=== PATIENT | female | born 1970 | race Caucasian/White ===

== ENCOUNTER 2017-02-12 23:45 | Observation (INO) | payer OTHER ==
[2017-02-13] MEDS ORDERED: Nitrostat 0.4 MG (ED) SL ONE ×2 (00:22→00:27)
[2017-02-13] MEDS ORDERED: BABY ASPIRIN 81 MG CHEW PO ONE (00:22)
[2017-02-13] MEDS ORDERED: Ativan 2 MG/1 ML VIAL IV ONE (00:26)
[2017-02-13] MEDS ORDERED: BABY ASPIRIN 81 MG CHEW ONE (00:27)
[2017-02-13] MEDS ORDERED: Sodium Chloride 0.9% 1000 ML 1,000 ML IV SCH (00:30)
--- NOTE | 2017-02-13 00:38 | ERPHSYRPT ---
- History of Present Illness Time Seen by Provider: 02/13/17 00:15 Historian: patient Patient Subjective Stated Complaint: Pt sts aching in left chest since 1400 with feelings of palpitations and that her left arm has felt "weird". Sts has had increased stress at home with family. Sts discomfort started while doing home chores. Sts nausea. Denies shortness of breath. Denies diaphoresis. Also C /O headache in temples. Triage Nursing Assessment: Pt alert, oriented, answers all questions appropriately. skin p/w/d, resps non-labored. Ambulatory to tx room, steady gait noted. SR on monitor technician. SPO2 100% room air. Physician History: PATIENT A HISTORY FOR MIGRAINE HEADACHE, RCENTLY PLACED ONTO ADIPEX COMPLAINS OF SUBSTERNAL ACHING DISCOMFORT ASSOCIATED WITH LEFT ARM ACHING DISOMFORT AND PALPITATIONS. PAIN SCALE 5/7. DENIES DISPHORESIS, COUGH OR DYSPNEA. HAS ASSOCIATED MIGRIANE HEADACHES. Timing/Duration: yesterday (SINCE 3PM) Quality: aching Chest Pain Radiation: arm Severity of Pain-Max: moderate Severity of Pain-Current: moderate Modifying Factors: Improves With: nothing Associated Symptoms: nausea, hurts to breathe Aspirin Treatment Today: provided by ED Allergies/Adverse Reactions: No Known Drug Allergies Allergy (Verified 02/13/17 00:02) Home Medications: Clidinium/Chlordiazepoxide [Librax] 1 cap PO QID 12/20/14 [History] Montelukast Sodium [Singulair] 1 tab PO DAILY 12/20/14 [History] Topiramate 100 mg [Topamax 100 MG] 100 mg PO HS 12/20/14 [History] Loperamide HCl 2 mg [Imodium 2 mg] 1 tab PO Q8HPRN PRN 08/17/15 [History] Ondansetron [Zofran Odt] 1 tab SL Q8H PRN PRN 08/17/15 [History] Sumatriptan Succinate [Imitrex 50 mg] 2 tab PO PRN 08/17/15 [History] Topiramate 25 mg [Topamax 25 MG] 1 tab PO QAM 08/17/15 [History] Alprazolam [Xanax] 0.5 mg PO QID PRN PRN 02/13/17 [History] Loratadine 10 mg PO DAILY 02/13/17 [History] Phentermine HCl [Adipex-P] 37.5 mg PO DAILY 02/13/17 [History] Hx Tetanus, Diphtheria Vaccination/Date Given: No Immunizations Up to Date: Yes - Review of Systems Constitutional: No Fever, No Chills Eyes: No Symptoms Ears, Nose, & Throat: No Symptoms Cardiac: Chest Pain, Palpitations Genitourinary Symptoms: No Symptoms Musculoskeletal: No Symptoms Neurological: No Symptoms, Dizziness, Headache Psychological: No Symptoms Endocrine: No Symptoms - Past Medical History Pertinent Past Medical History: Yes Neurological History: Migraines ENT History: No Pertinent History Cardiac History: High Cholesterol, Hypertension Respiratory History: No Pertinent History Endocrine Medical History: Other Musculoskeletal History: No Pertinent History GI Medical History: Gallbladder Disease, Irritable Bowel History: No Pertinent History Psycho-Social History: Anxiety Female Reproductive Disorders: Menstrual Problems Other Medical History: hx of high cholesterol but not at present, hx of elevated liver enzymes with bx that was negative but nothing recently, has had hx of anxiety issues with meds but nothing at present, had parital hysterectomy due to hx of heavy periods, had gallbladder disease and had a cholecystectomy, has htn that she treats with meds - Past Surgical History Past Surgical History: Yes Neuro Surgical History: No Pertinent History Cardiac: No Pertinent History Respiratory: No Pertinent History Gastrointestinal: Cholecystectomy Genitourinary: No Pertinent History Musculoskeletal: No Pertinent History Female Surgical History: Hysterectomy Other Surgical History: tonsilectomy, sinus surgery, partial hysterectomy, cholecystectomy - Social History Smoking Status: Never smoker Exposure to second hand smoke: No Drug Use: none Patient Lives Alone: No - Female History Hx Last Menstrual Period: hyst - Nursing Vital Signs Nursing Vital Signs: Initial Vital Signs Temperature 98.4 F 02/12/17 23:56 Pulse Rate 83 02/12/17 23:56 Respiratory Rate 18 02/12/17 23:56 Blood Pressure 144/80 02/12/17 23:56 O2 Sat by Pulse Oximetry 100 02/12/17 23:56 Pain Scale Pain Intensity 3 - Physical Exam General Appearance: no apparent distress, alert Eye Exam: PERRL/EOMI, eyes nml inspection Ears, Nose, Throat Exam: normal ENT inspection, moist mucous membranes Neck Exam: normal inspection, non-tender, supple, full range of motion Respiratory Exam: normal breath sounds, chest tenderness (LEFT LATERAL CHEST WALL TENDERNESS), lungs clear, No respiratory distress Cardiovascular Exam: regular rate/rhythm, normal heart sounds Gastrointestinal/Abdomen Exam: soft, No tenderness, No mass Back Exam: normal inspection, No CVA tenderness, No vertebral tenderness Extremity Exam: normal inspection, normal range of motion Neurologic Exam: alert, oriented x 3, cooperative, normal mood/affect, sensation nml, No motor deficits Skin Exam: normal color, warm, dry SpO2 Interpretation: normal SpO2: 100 Oxygen Delivery: Room Air - Course EKG Interpreted by Me: RATE, Sinus Rhythm, Non-specific ST Changes - Radiology Exams Chest X-ray Interpretation: Interpreted by me, Negative Ordered Tests: Active Orders 24 hr Category Date Time Status Bedrest with BRP/BSC ROUTINE Activity 02/13/17 02:01 Active Admission/Status Order ROUTINE Care 02/13/17 02:01 Active Call Admit Doctor for Orders ROUTINE Care 02/13/17 02:01 Active Carpet Technician STAT Care 02/13/17 00:23 Active Code Status Order ROUTINE Care 02/13/17 02:01 Active EKG-ER Only STAT Care 02/13/17 00:22 Active IV Care Q6H Care 02/13/17 02:01 Active Implement Chest Pain Pathway ROUTINE Care 02/13/17 02:01 Active Oxygen-ED Only NASAL CANNULA 2 lpm Care 02/13/17 00:22 Active Nish Ortiz, Apply ROUTINE Care 02/13/17 02:01 Active Telemetry ROUTINE Care 02/13/17 02:01 Active Vital Signs Q4H Care 02/13/17 02:01 Completed Weight,Daily 0600 Care 02/13/17 02:01 Active Cardiac Diet Diet 02/13/17 Breakfast Active CHEST 1 VIEW (PORTABLE) Stat Exams 02/13/17 00:22 Taken CBC W DIFF Stat Lab 02/13/17 00:45 Completed CMP Stat Lab 02/13/17 00:45 Completed D-DIMER QUANTITATION Stat Lab 02/13/17 00:45 Completed LIPID PROFILE AM.LAB Lab 02/13/17 04:00 Ordered PROTIME WITH INR Stat Lab 02/13/17 00:45 Completed TROPONIN Q3H Lab 02/13/17 00:45 Completed TROPONIN Q3H Lab 02/13/17 03:40 Completed TROPONIN Q3H Lab 02/13/17 06:30 Ordered TROPONIN Q3H Lab 02/13/17 09:30 Ordered TROPONIN Q3H Lab 02/13/17 12:30 Ordered EKG Q8HX2,QAMX3,PRN RT 02/13/17 02:01 Active Pulse Oximetry .continuos RT 02/13/17 02:01 Active Transfer Order Routine Transfer 02/13/17 Ordered Medication Summary Generic Name Dose Route Start Last Admin Trade Name Freq PRN Reason Stop Dose Admin Acetaminophen 650 mg 02/13/17 02:01 Tylenol 325 Mg PO 03/15/17 02:00 Q4H PRN PRN PAIN AND/OR FEVER Aspirin 325 mg 02/13/17 10:00 Ecotrin 325 Mg PO 03/15/17 09:59 DAILY CHIN Sodium Chloride 1,000 mls @ 100 mls/hr 02/13/17 00:30 02/13/17 00:47 Sodium Chloride 0.9% 1000 Ml IV 03/15/17 00:29 100 mls/hr .Q10H CHIN Administration Sodium Chloride 500 mls @ 20 mls/hr 02/13/17 02:15 Sodium Chloride 0.9% 500 Ml IV 03/15/17 02:14 .Q24H CHIN Magnesium Hydroxide 30 - 60 ml 02/13/17 02:01 Milk Of Magnesia 30 Ml PO 03/15/17 02:00 QDP PRN CONSTIPATION Morphine Sulfate 2 mg 02/13/17 02:01 Morphine Sulfate 2 Mg Inj IV 02/18/17 02:00 .Q15MIN PRN PRN CHEST PAIN Nitroglycerin 0.4 mg 02/13/17 02:01 Nitrostat 0.4 Mg Tablet SL 03/15/17 02:00 .Q5MIN PRN CHEST PAIN Ondansetron HCl 4 mg 02/13/17 02:01 Zofran 4 Mg/2 Ml Vial IV 03/15/17 02:00 Q4H PRN PRN NAUSEA/VOMITING Senna/Docusate Sodium 2 udtab 02/13/17 02:01 Senokot-S Tablet PO 03/15/17 02:00 BID PRN PRN CONSTIPATION Topiramate 100 mg 02/13/17 22:00 Topamax 100 Mg PO 03/15/17 21:59 [facility] 25 mg 02/13/17 10:00 Topamax 25 Mg PO 03/15/17 09:59 QAM [facility] Discontinued Medications Generic Name Dose Route Start Last Admin Trade Name Pratik PRN Reason Stop Dose Admin Aspirin 324 mg 02/13/17 00:22 02/13/17 00:47 Baby Aspirin 81 Mg Chew PO 02/13/17 00:23 324 mg STAT ONE Administration Aspirin Confirm 02/13/17 00:27 Baby Aspirin 81 Mg Chew Administered 02/13/17 00:28 Dose 324 mg .ROUTE .STK-MED ONE Hydromorphone HCl 1 mg 02/13/17 01:39 02/13/17 01:44 Hydromorphone 1 Mg/Ml Ampule IV 02/13/17 01:40 1 mg STAT ONE Administration Hydromorphone HCl Confirm 02/13/17 01:42 Hydromorphone 1 Mg/Ml Ampule Administered 02/13/17 01:43 Dose 1 mg .ROUTE .STK-MED ONE Lorazepam 1 mg 02/13/17 00:26 02/13/17 00:54 Ativan 2 Mg/1 Ml Vial IV 02/13/17 00:27 1 mg STAT ONE Administration Lorazepam Confirm 02/13/17 00:51 Ativan 2 Mg/1 Ml Vial Administered 02/13/17 00:52 Dose 2 mg .ROUTE .STK-MED ONE Nitroglycerin 0.4 mg 02/13/17 00:22 02/13/17 00:47 Nitrostat 0.4 Mg (Ed) SL 02/13/17 00:23 0.4 mg STAT ONE Administration Nitroglycerin Confirm 02/13/17 00:27 Nitrostat 0.4 Mg (Ed) Administered 02/13/17 00:28 Dose 0.4 mg SL .STK-MED ONE Ondansetron HCl 4 mg 02/13/17 01:38 02/13/17 01:44 Zofran 4 Mg/2 Ml Vial IV 02/13/17 01:39 4 mg STAT ONE Administration Ondansetron HCl Confirm 02/13/17 01:42 Zofran 4 Mg/2 Ml Vial Administered 02/13/17 01:43 Dose 4 mg .ROUTE .STK-MED ONE Lab/Rad Data: Laboratory Result Diagrams 02/13/17 00:45 02/13/17 00:45 Laboratory Results 02/13/17 02/13/17 02/13/17 Range/Units 00:45 00:45 00:45 WBC (4.0-10.5) K/mm3 RBC (4.1-5.4) M/mm3 Hgb (12.0-16.0) gm/dl Hct (35-47) % MCV (78-100) fl MCH (26-32) pg MCHC (32-36) g/dl RDW (11.5-14.0) % Plt Count (150-450) K/mm3 MPV (6-9.5) fl Gran % (36.0-66.0) % Lymphocytes % (24.0-44.0) % Monocytes % (0.0-12.0) % Eosinophils % (0.00-5.0) % Basophils % (0.0-0.4) % Basophils # (0-0.4) INR 0.94 (0.8-3.0) D-Dimer 221 (0-500) ng/mL Sodium 142 (136-145) mEq/L Potassium 3.5 (3.5-5.1) mEq/L Chloride 107 (98-107) mEq/L Carbon Dioxide 21.6 (21-32) mEq/L Anion Gap 17.3 H (5-15) MEQ/L BUN 9 (9-20) mg/dL Creatinine 0.96 (0.55-1.30) mg/dl Estimated GFR > 60 ML/MIN Glucose 96 (70-110) MG/DL Calcium 9.0 (8.5-10.1) mg/dL Total Bilirubin 0.20 (0.2-1.0) mg/dL AST 12 L (15-37) U/L ALT 22 (12-78) U/L Alkaline Phosphatase 90 (46-116) U/L Troponin I < 0.017 (0.000-0.056) ng/ml Serum Total Protein 7.6 (6.4-8.2) gm/dL Albumin 4.0 (3.4-5.0) g/dL 02/13/17 Range/Units 00:45 WBC 8.7 (4.0-10.5) K/mm3 RBC 5.15 (4.1-5.4) M/mm3 Hgb 14.3 (12.0-16.0) gm/dl Hct 43.5 (35-47) % MCV 84.5 (78-100) fl MCH 27.8 (26-32) pg MCHC 32.9 (32-36) g/dl RDW 14.1 H (11.5-14.0) % Plt Count 381 (150-450) K/mm3 MPV 10.1 H (6-9.5) fl Gran % 58.2 (36.0-66.0) % Lymphocytes % 28.3 (24.0-44.0) % Monocytes % 10.0 (0.0-12.0) % Eosinophils % 3.2 (0.00-5.0) % Basophils % 0.3 (0.0-0.4) % Basophils # 0.03 (0-0.4) INR (0.8-3.0) D-Dimer (0-500) ng/mL Sodium (136-145) mEq/L Potassium (3.5-5.1) mEq/L Chloride (98-107) mEq/L Carbon Dioxide (21-32) mEq/L Anion Gap (5-15) MEQ/L BUN (9-20) mg/dL Creatinine (0.55-1.30) mg/dl Estimated GFR ML/MIN Glucose (70-110) MG/DL Calcium (8.5-10.1) mg/dL Total Bilirubin (0.2-1.0) mg/dL AST (15-37) U/L ALT (12-78) U/L Alkaline Phosphatase (46-116) U/L Troponin I (0.000-0.056) ng/ml Serum Total Protein (6.4-8.2) gm/dL Albumin (3.4-5.0) g/dL - Progress Progress: improved Progress Note: 02/13/17 01:57 PATIENT GIVEN 4 BABY ASPIRIN , NITRO 0.4MG SL, CHEST PAIN RESOLVED. DILAUDID 1MG IV FOR CEPHALGIA Discussed with Dr.: Cormier (DISCUSSED WITH DR CORMIER AT 0145 FOR ADMISSION) - Departure Time of Disposition: 02:00 Departure Disposition: Observation Clinical Impression: ACUTE CHEST PAIN Condition: Stable Critical Care Time: No
[2017-02-13] MEDS ORDERED: Ativan 2 MG/1 ML VIAL ONE (00:51)
[2017-02-13 01:11] LABS: INR 0.94 (0.8-3.0); PROTIME 10.6 SECONDS (9.95-12.35)
[2017-02-13 01:14] LABS: BASOPHIL % 0.3 % (0.0-0.4); Eosinophil % 3.2 % (0.00-5.0); Granulocytes % 58.2 % (36.0-66.0); Lymphocytes % 28.3 % (24.0-44.0); Mean Cell Volume 84.5 fl (78-100); Mean Corpuscular Hemoglobin 27.8 pg (26-32); Mean Platelet Volume 10.1 fl (6-9.5); Platelet Count 381 K/mm3 (150-450); Red Blood Count 5.15 M/mm3 (4.1-5.4); Red Cell Distribution Width 14.1 % (11.5-14.0); White Blood Count 8.7 K/mm3 (4.0-10.5)
[2017-02-13 01:20] LABS: ALKALINE PHOSPHATASE 90 U/L (46-116); ANION GAP 17.3 MEQ/L (5-15); BLOOD UREA NITROGEN 9 mg/dL (9-20); CHLORIDE 107 mEq/L (98-107); Carbon Dioxide 21.6 mEq/L (21-32); Glucose 96 MG/DL (70-110); Potassium 3.5 mEq/L (3.5-5.1); SGOT/AST 12 U/L (15-37); SGPT/ALT 22 U/L (12-78); SODIUM 142 mEq/L (136-145); Total Protein 7.6 gm/dL (6.4-8.2)
[2017-02-13] MEDS ORDERED: Zofran 4 MG/2 ML VIAL IV ONE (01:38)
[2017-02-13] MEDS ORDERED: Hydromorphone 1 mg/ml Ampule IV ONE (01:39)
[2017-02-13] MEDS ORDERED: Hydromorphone 1 mg/ml Ampule ONE (01:42)
[2017-02-13] MEDS ORDERED: Zofran 4 MG/2 ML VIAL ONE (01:42)
[2017-02-13] MEDS ORDERED: MILK OF MAGNESIA 30 ML PO PRN (02:01)
[2017-02-13] MEDS ORDERED: Senokot-S Tablet PO PRN (02:01)
[2017-02-13] MEDS ORDERED: Zofran 4 MG/2 ML VIAL IV PRN (02:01)
[2017-02-13] MEDS ORDERED: TYLENOL 325 MG PO PRN (02:01)
[2017-02-13] MEDS ORDERED: Nitrostat 0.4 MG Tablet SL PRN (02:01)
[2017-02-13] MEDS ORDERED: MORPHINE SULFATE 2 MG INJ IV PRN (02:01)
[2017-02-13] MEDS ORDERED: Sodium Chloride 0.9% 500 ML 500 ML IV SCH (02:15)
--- NOTE | 2017-02-13 08:15 | PCM.SSS ---
History of Present Illness - Chief Complaint Chief Complaint: CP R/O History of Present Illness: is a 46 year old female who presented to the ER complaining of chest pain that was a pressure sensation, began yesterday and had some associated nausea. No shortness of breath or diaphoresis. - Review of Systems Constitutional: No Fever, No Chills Respiratory: No Cough, No Short Of Breath Cardiac: Chest Pain, No Edema, No Syncope Abdominal/Gastrointestinal: No Abdominal Pain, No Nausea, No Vomiting, No Diarrhea Skin: No Rash All Other Systems: Reviewed and Negative Medications & Allergies Home Medications: Home Medication List Clidinium/Chlordiazepoxide [Librax] 1 cap PO QID 12/20/14 [History Confirmed 02/13/17] Montelukast Sodium [Singulair] 1 tab PO DAILY 12/20/14 [History Confirmed ] Loperamide HCl 2 mg [Imodium 2 mg] 1 tab PO Q8HPRN PRN 08/17/15 [History Confirmed 02/13/17] Ondansetron [Zofran Odt] 1 tab SL Q8H PRN PRN 08/17/15 [History Confirmed ] Acetaminophen 325 mg [Tylenol 325 mg] 650 mg PO Q4H PRN PRN tablet [Rx] Alprazolam [Xanax] 0.5 mg PO QID PRN PRN 02/13/17 [History Confirmed 02/13/17] Aspirin EC 325 mg [Ecotrin 325 MG] 325 mg PO DAILY tablet.ec 02/13/17 [Rx ] Loratadine 10 mg PO DAILY 02/13/17 [History Confirmed 02/13/17] Allergies/Adverse Reactions: Allergies Allergy/AdvReac Type Severity Reaction Status Date / Time No Known Drug Allergies Allergy Verified 02/13/17 00:02 - Past Medical History Past Medical History: Yes Neurological History: Migraines ENT History: No Pertinent History Cardiac History: High Cholesterol, Hypertension Respiratory History: No Pertinent History Endocrine Medical History: Other Musculoskelatal History: No Pertinent History GI Medical History: Gallbladder Disease, Irritable Bowel History: No Pertinent History Pyscho-Social History: Anxiety Reproductive Disorders: Menstrual Problems Comment: hx of high cholesterol but not at present, hx of elevated liver enzymes with bx that was negative but nothing recently, has had hx of anxiety issues with meds but nothing at present, had parital hysterectomy due to hx of heavy periods, had gallbladder disease and had a cholecystectomy, has htn that she treats with meds - Female History Hx Last Menstrual Period: hyst Are you now?: No - Past Surgical History Past Surgical History: Yes Neuro Surgical History: No Pertinent History Cardiac History: No Pertinent History Respiratory Surgery: No Pertinent History GI Surgical History: Cholecystectomy Genitourinary Surgical Hx: No Pertinent History Musculskeletal Surgical Hx: No Pertinent History Female Surgical History: Hysterectomy Other Surgical History: tonsilectomy, sinus surgery, partial hysterectomy, cholecystectomy - Social History Smoking Status: Never smoker Exposure to second hand smoke: No Alcohol: Occasionally Drug Use: none - Physical Exam Vital Signs: Vital Signs - 24 hr Temp Pulse Resp BP Pulse Ox 02/13/17 07:51 97.3 F 71 18 147/84 100 02/13/17 06:49 100 02/13/17 02:01 98.5 F 74 16 129/75 99 02/13/17 01:35 86 16 123/71 97 02/13/17 01:03 86 20 129/72 95 02/12/17 23:56 98.4 F 83 18 144/80 100 General Appearance: no apparent distress, alert Respiratory Exam: normal breath sounds, lungs clear, No respiratory distress Cardiovascular Exam: regular rate/rhythm, normal heart sounds, normal peripheral pulses Gastrointestinal/Abdomen Exam: soft, normal bowel sounds, No tenderness, No mass Extremity Exam: normal inspection, normal range of motion, pelvis stable Skin Exam: normal color, warm, dry, No rash Results - Labs Lab/Micro Results: Lab Results-Last 24 Hours 02/13/17 02/13/17 02/13/17 Range/Units 03:40 07:08 07:08 Troponin I < 0.017 < 0.017 (0.000-0.056) ng/ml Triglycerides 109 (30-200) mg/dL Cholesterol 196 (100-200) mg/dL LDL Cholesterol 117 H (5-99) mg/dL HDL Cholesterol 54 (35-60) mg/dL Heart Disease Risk Ratio 3.6 - Other Procedures and Tests Respiratory Therapy 02/13/17 02:01 EKG Q8HX2,QAMX3,PRN 08/21/17 08:22 EKG ONCE 02/13/17 08:30 EKG ONCE 02/14/17 05:00 EKG ONCE 02/14/17 06:00 EKG ONCE 02/15/17 05:00 EKG ONCE 02/15/17 06:00 EKG ONCE 02/16/17 05:00 EKG ONCE Assessment/Plan (1) Chest pain Current Visit: Yes Status: Acute Assessment & Plan: will r/o VT, likely anxiety related. advised to stop adipex Code(s): R07.9 - CHEST PAIN, UNSPECIFIED (2) Anxiety Current Visit: Yes Status: Acute Code(s): F41.9 - ANXIETY DISORDER, UNSPECIFIED Hospital Summary - Vitals & Intake/Output Vital Signs: Vital Signs Temperature 97.3 F 02/13/17 07:51 Pulse Rate 71 02/13/17 07:51 Respiratory Rate 18 02/13/17 07:51 Blood Pressure 147/84 02/13/17 07:51 O2 Sat by Pulse Oximetry 100 02/13/17 07:51 Intake & Output: Intake & Output 02/10/17 02/11/17 02/12/17 02/13/17 11:59 11:59 11:59 11:59 Intake Total 235 Output Total 600 Balance -365 Weight 80.739 kg - Lab Result Diagrams: 02/13/17 00:45 02/13/17 00:45 Lab Results-Last 24 Hrs: Lab Results-Last 24 Hours 02/13/17 02/13/17 02/13/17 Range/Units 03:40 07:08 07:08 Troponin I < 0.017 < 0.017 (0.000-0.056) ng/ml Triglycerides 109 (30-200) mg/dL Cholesterol 196 (100-200) mg/dL LDL Cholesterol 117 H (5-99) mg/dL HDL Cholesterol 54 (35-60) mg/dL Heart Disease Risk Ratio 3.6 - Procedures and Test Procedures and Tests throughout Hospitalization: Therapy Orders & Screens 02/13/17 02:01 EKG Q8HX2,QAMX3,PRN Comment: 02/13/17 08:22 EKG ONCE Comment: Diagnosis: CP R/O 02/13/17 08:30 EKG ONCE Comment: Diagnosis: CP R/O 02/14/17 05:00 EKG ONCE Comment: Diagnosis: CP R/O 02/14/17 06:00 EKG ONCE Comment: Diagnosis: CP R/O 02/15/17 05:00 EKG ONCE Comment: Diagnosis: CP R/O 02/15/17 06:00 EKG ONCE Comment: Diagnosis: CP R/O 02/16/17 05:00 EKG ONCE Comment: Diagnosis: CP R/O - Discharge Disposition: Home, Self-Care Condition: Stable Prescriptions: New Aspirin EC 325 mg [Ecotrin 325 MG] 325 mg PO DAILY tablet.ec Acetaminophen 325 mg [Tylenol 325 mg] 650 mg PO Q4H PRN PRN tablet PRN Reason: Pain And/Or Fever Continue Montelukast Sodium [Singulair] 1 tab PO DAILY Clidinium/Chlordiazepoxide [Librax] 1 cap PO QID Loperamide HCl 2 mg [Imodium 2 mg] 1 tab PO Q8HPRN PRN PRN Reason: Diarrhea Ondansetron [Zofran Odt] 1 tab SL Q8H PRN PRN PRN Reason: Nausea Alprazolam [Xanax] 0.5 mg PO QID PRN PRN PRN Reason: Anxiety Loratadine 10 mg PO DAILY Discontinued Topiramate 100 mg [Topamax 100 MG] 100 mg PO HS Topiramate 25 mg [Topamax 25 MG] 1 tab PO QAM Phentermine HCl [Adipex-P] 37.5 mg PO DAILY Follow up with: ROSE CORMIER MD [Primary Care Provider] -
--- NOTE | 2017-02-13 08:39 | XRAY ---
Indication: Chest pain and palpitations. Comparison: August 03, 2015. Portable chest again demonstrates normal heart, lungs, and bony thorax with incidental calcified granulomas.
[2017-02-13] MEDS ORDERED: xanAX 0.5 MG PO PRN (08:45)
[2017-02-13] MEDS ORDERED: IMODIUM 2 MG PO PRN (08:45)
[2017-02-13] MEDS ORDERED: MEDICATION INTERVENTION MC PRN (08:57)
[2017-02-13] MEDS: LIBRAX PO SCH ×2 (09:56→12:05)
[2017-02-13] MEDS ORDERED: Topamax 25 MG PO SCH (10:00)
[2017-02-13] MEDS ORDERED: Ecotrin 325 MG PO SCH (10:00)
[2017-02-13] MEDS ORDERED: LORATADINE 10 MG PO SCH (10:00)
[2017-02-13] MEDS ORDERED: CLARITIN 10 MG PO SCH (10:00)
[2017-02-13] MEDS ORDERED: Singulair 10 MG PO SCH (10:00)
[2017-02-13 13:09] VITALS: BP 108/62; PULSE 74; O2SAT 96
[2017-02-13] MEDS ORDERED: Topamax 100 MG PO SCH (22:00)
== END 2017-02-13 14:10 | disposition home or self-care (01) ==
LOC: ED 23:45 → MED SURG 02-13 02:16
PROVIDERS: ADMIT Family Medicine; ATTEND Family Medicine
DX: R07.9 Chest pain, unspecified (principal); F41.9 Anxiety disorder, unspecified
CPT/HCPCS: 36000; 36415; 71010; 80053; 80061; 83721; 84484; 85025; 85379; 85610; 93005; 93041; 93268; 94760; 96360; 96374; 96375; 99285; G0378; J1170; J2060; J2405; A9270-GY

== ENCOUNTER 2018-09-18 12:35 | Emergency (ER) | payer OTHER ==
--- NOTE | 2018-09-18 12:44 | ERPHSYRPT ---
- History of Present Illness Time Seen by Provider: 09/18/18 12:43 Historian: patient, family Exam Limitations: no limitations Physician History: 48 y/o white female presents with diarrhea since last pm. pt has h/o chronic sinusitis on intranasal cipro/steroids solution, migraine headaches, and irritable bowel syndrome. pt feels weak and dehydrated. pt denies abd pain, headache and vomiting. pt recently started a keto diet Timing/Duration: day(s) (1) Activities at Onset: none Quality: other (no pain) Abdominal Pain Onset Location: other (none) Pain Radiation: no radiation Severity of Pain-Max: none Severity of Pain-Current: none Modifying Factors: Improves With: other (eating solids causes diarrhea) Associated Symptoms: diarrhea, loss of appetite, weakness, No chest pain, No nausea, No shortness of breath, No vomiting Previous symptoms: no prior history Allergies/Adverse Reactions: No Known Drug Allergies Allergy (Verified 09/18/18 13:02) Home Medications: Clidinium/Chlordiazepoxide [Librax] 1 cap PO QID 12/20/14 [History] Montelukast Sodium [Singulair] 1 tab PO DAILY 12/20/14 [History] Loperamide HCl 2 mg [Imodium 2 mg] 1 tab PO Q8HPRN PRN 08/17/15 [History] Ondansetron [Zofran Odt] 1 tab SL Q8H PRN PRN 08/17/15 [History] Alprazolam [Xanax] 0.5 mg PO QID PRN PRN 02/13/17 [History] Loratadine 10 mg PO DAILY 02/13/17 [History] Hx Tetanus, Diphtheria Vaccination/Date Given: No - Review of Systems Constitutional: Weakness Eyes: No Symptoms Ears, Nose, & Throat: No Symptoms Respiratory: No Symptoms Cardiac: No Symptoms Abdominal/Gastrointestinal: Diarrhea, No Abdominal Pain, No Nausea, No Vomiting Genitourinary Symptoms: No Symptoms Musculoskeletal: No Symptoms Skin: No Symptoms Neurological: No Symptoms Psychological: No Symptoms Endocrine: No Symptoms Hematologic/Lymphatic: No Symptoms Immunological/Allergic: No Symptoms All Other Systems: Reviewed and Negative - Past Medical History Pertinent Past Medical History: Yes Neurological History: Migraines ENT History: No Pertinent History Cardiac History: High Cholesterol, Hypertension Respiratory History: No Pertinent History Endocrine Medical History: Other Musculoskeletal History: No Pertinent History GI Medical History: Gallbladder Disease, Irritable Bowel History: No Pertinent History Psycho-Social History: Anxiety Female Reproductive Disorders: Menstrual Problems Other Medical History: hx of high cholesterol but not at present, hx of elevated liver enzymes with bx that was negative but nothing recently, has had hx of anxiety issues with meds but nothing at present, had parital hysterectomy due to hx of heavy periods, had gallbladder disease and had a cholecystectomy, has htn that she treats with meds - Past Surgical History Past Surgical History: Yes Neuro Surgical History: No Pertinent History Cardiac: No Pertinent History Respiratory: No Pertinent History Gastrointestinal: Cholecystectomy Genitourinary: No Pertinent History Musculoskeletal: No Pertinent History Female Surgical History: Hysterectomy Other Surgical History: tonsilectomy, sinus surgery, partial hysterectomy, cholecystectomy - Social History Smoking Status: Never smoker Exposure to second hand smoke: No Drug Use: none Patient Lives Alone: No - Nursing Vital Signs Nursing Vital Signs: Initial Vital Signs Temperature 97.8 F 09/18/18 12:55 Pulse Rate 99 H 09/18/18 12:55 Respiratory Rate 18 09/18/18 12:55 Blood Pressure 144/94 09/18/18 12:55 O2 Sat by Pulse Oximetry 97 09/18/18 12:55 Pain Scale Pain Intensity 0 - Physical Exam General Appearance: mild distress, alert, anxiety Eye Exam: PERRL/EOMI, eyes nml inspection Ears, Nose, Throat Exam: dry mucous membranes Neck Exam: normal inspection, non-tender, supple, full range of motion Respiratory Exam: normal breath sounds, lungs clear, airway intact, No chest tenderness, No respiratory distress Cardiovascular Exam: regular rate/rhythm, normal heart sounds, normal peripheral pulses Gastrointestinal/Abdomen Exam: soft, normal bowel sounds, No tenderness Pelvic Exam: not done Rectal Exam: not done Back Exam: normal inspection, normal range of motion, No CVA tenderness, No vertebral tenderness Extremity Exam: normal inspection, normal range of motion, pelvis stable Neurologic Exam: alert, oriented x 3, cooperative, spanish medical interpreter II-XII nml as tested, normal mood/affect, nml cerebellar function, nml station & gait Skin Exam: normal color, warm, dry Lymphatic Exam: No adenopathy SpO2 Interpretation: normal O2 Delivery: Room Air Ordered Tests: Active Orders 24 hr Category Date Time Status Clean Catch Urine Specimen STAT Care 09/18/18 13:10 Active IV Insertion STAT Care 09/18/18 13:10 Active ABDOMEN AND PELVIS W/0 CONTRAS [CT] Stat Exams 09/18/18 13:11 Completed AMYLASE Stat Lab 09/18/18 13:43 Completed CBC W DIFF Stat Lab 09/18/18 13:43 Completed CMP Stat Lab 09/18/18 13:43 Completed LIPASE Stat Lab 09/18/18 13:43 Completed Lactic Acid Stat Lab 09/18/18 13:40 Completed UA W/RFX UR CULTURE Stat Lab 09/18/18 13:10 Completed Medication Summary Generic Name Dose Route Start Last Admin Trade Name Freq PRN Reason Stop Dose Admin Sodium Chloride 1,000 mls @ 999 mls/hr 09/18/18 15:19 09/18/18 15:31 Sodium Chloride 0.9% 1000 Ml IV 09/18/18 16:19 999 mls/hr .Q1H1M STA Administration Discontinued Medications Generic Name Dose Route Start Last Admin Trade Name Freq PRN Reason Stop Dose Admin Sodium Chloride 1,000 mls @ 999 mls/hr 09/18/18 13:10 09/18/18 15:00 Sodium Chloride 0.9% 1000 Ml IV 09/18/18 14:10 Infused .Q1H1M STA Infusion Sodium Chloride Confirm 09/18/18 13:54 Sodium Chloride 0.9% 1000 Ml Administered 09/18/18 13:55 Dose 1,000 mls @ ud .ROUTE .STK-MED ONE Sodium Chloride Confirm 09/18/18 15:25 Sodium Chloride 0.9% 1000 Ml Administered 09/18/18 15:26 Dose 1,000 mls @ ud .ROUTE .STK-MED ONE Lab/Rad Data: Laboratory Result Diagrams 09/18/18 13:43 09/18/18 13:43 Laboratory Results 09/18/18 09/18/18 09/18/18 Range/Units 14:10 13:43 13:43 WBC 8.4 (4.0-10.5) K/mm3 RBC 5.18 (4.1-5.4) M/mm3 Hgb 14.1 (12.0-16.0) gm/dl Hct 43.3 (35-47) % MCV 83.6 (78-100) fl MCH 27.2 (26-32) pg MCHC 32.6 (32-36) g/dl RDW 14.5 H (11.5-14.0) % Plt Count 341 (150-450) K/mm3 MPV 10.0 H (6-9.5) fl Gran % 74.8 H (36.0-66.0) % Eos # (Auto) 0.12 (0-0.5) Absolute Lymphs (auto) 1.25 (1.0-4.6) Absolute Monos (auto) 0.70 (0.0-1.3) Lymphocytes % 14.9 L (24.0-44.0) % Monocytes % 8.4 (0.0-12.0) % Eosinophils % 1.4 (0.00-5.0) % Basophils % 0.5 (0.0-0.4) % Absolute Granulocytes 6.26 (1.4-6.9) Basophils # 0.04 (0-0.4) Sodium 138 (137-145) mmol/L Potassium 3.4 L (3.5-5.1) mmol/L Chloride 104 (98-107) mmol/L Carbon Dioxide 22 (22-30) mmol/L Anion Gap 16.0 H (5-15) MEQ/L BUN 14 (7-17) mg/dL Creatinine 1.01 (0.52-1.04) mg/dL Estimated GFR > 60.0 ML/MIN Glucose 80 (74-106) mg/dL Lactic Acid (0.4-2.0) Calcium 9.7 (8.4-10.2) mg/dL Total Bilirubin 0.30 (0.2-1.3) mg/dL AST 26 (14-36) U/L ALT 28 (0-35) U/L Alkaline Phosphatase 89 (38-126) U/L Serum Total Protein 7.7 (6.3-8.2) g/dL Albumin 4.6 (3.5-5.0) g/dL Amylase 90 (30-110) U/L Lipase 79 (23-300) U/L Urine Color (YELLOW) Urine Appearance (CLEAR) Urine pH (5-6) Ur Specific [place] (1.005-1.025) Urine Protein (Negative) Urine Ketones (NEGATIVE) Urine Blood (0-5) Josué/ul Urine Nitrite (NEGATIVE) Urine Bilirubin (NEGATIVE) Urine Urobilinogen (0-1) mg/dL Ur Leukocyte Esterase (NEGATIVE) Urine WBC (Auto) (0-5) /HPF Urine RBC (Auto) (0-2) /HPF U Epithel Cells (Auto) (FEW) /HPF Urine Bacteria (Auto) (NEGATIVE) /HPF Urine Mucus (Auto) (NEGATIVE) /HPF Urine Culture Reflexed (NO) Urine Glucose (NEGATIVE) mg/dL Influenza Type A Ag NEGATIVE (NEGATIVE) Influenza Type B Ag NEGATIVE (NEGATIVE) RSV (PCR) NEGATIVE (Negative) 09/18/18 09/18/18 Range/Units 13:40 13:10 WBC (4.0-10.5) K/mm3 RBC (4.1-5.4) M/mm3 Hgb (12.0-16.0) gm/dl Hct (35-47) % MCV (78-100) fl MCH (26-32) pg MCHC (32-36) g/dl RDW (11.5-14.0) % Plt Count (150-450) K/mm3 MPV (6-9.5) fl Gran % (36.0-66.0) % Eos # (Auto) (0-0.5) Absolute Lymphs (auto) (1.0-4.6) Absolute Monos (auto) (0.0-1.3) Lymphocytes % (24.0-44.0) % Monocytes % (0.0-12.0) % Eosinophils % (0.00-5.0) % Basophils % (0.0-0.4) % Absolute Granulocytes (1.4-6.9) Basophils # (0-0.4) Sodium (137-145) mmol/L Potassium (3.5-5.1) mmol/L Chloride (98-107) mmol/L Carbon Dioxide (22-30) mmol/L Anion Gap (5-15) MEQ/L BUN (7-17) mg/dL Creatinine (0.52-1.04) mg/dL Estimated GFR ML/MIN Glucose (74-106) mg/dL Lactic Acid 1.1 (0.4-2.0) Calcium (8.4-10.2) mg/dL Total Bilirubin (0.2-1.3) mg/dL AST (14-36) U/L ALT (0-35) U/L Alkaline Phosphatase (38-126) U/L Serum Total Protein (6.3-8.2) g/dL Albumin (3.5-5.0) g/dL Amylase (30-110) U/L Lipase (23-300) U/L Urine Color YELLOW (YELLOW) Urine Appearance SLIGHTLY CLOUDY (CLEAR) Urine pH 6.0 (5-6) Ur Specific [place] 1.014 (1.005-1.025) Urine Protein NEGATIVE (Negative) Urine Ketones MODERATE (NEGATIVE) Urine Blood SMALL (0-5) Josué/ul Urine Nitrite NEGATIVE (NEGATIVE) Urine Bilirubin NEGATIVE (NEGATIVE) Urine Urobilinogen NEGATIVE (0-1) mg/dL Ur Leukocyte Esterase NEGATIVE (NEGATIVE) Urine WBC (Auto) 0-2 (0-5) /HPF Urine RBC (Auto) 0-2 (0-2) /HPF U Epithel Cells (Auto) RARE (FEW) /HPF Urine Bacteria (Auto) RARE (NEGATIVE) /HPF Urine Mucus (Auto) SLIGHT (NEGATIVE) /HPF Urine Culture Reflexed NO (NO) Urine Glucose NEGATIVE (NEGATIVE) mg/dL Influenza Type A Ag (NEGATIVE) Influenza Type B Ag (NEGATIVE) RSV (PCR) (Negative) - Progress Progress: improved, re-examined Counseled pt/family regarding: lab results, diagnosis, need for follow-up, rad results - Departure Time of Disposition: 16:05 Departure Disposition: Home Clinical Impression: Diarrhea, Dehydration Condition: Stable Critical Care Time: No Referrals: ROSE CORMIER MD [Primary Care Provider] - Additional Instructions: drink plenty of fluids. avoid fatty, greasy spicy foods. follow up with your primary doctor for further management
[2018-09-18] MEDS ORDERED: Sodium Chloride 0.9% 1000 ML 1,000 ML IV STA ×2 (13:10→15:19)
--- NOTE | 2018-09-18 13:47 | XRAY ---
Indication: Diarrhea. Multiple contiguous axial images obtained through the abdomen and pelvis without contrast as ordered. Comparison: July 18, 2015. Lung bases are clear. Heart is not enlarged. Noncontrasted stomach and bowel loops appear nonobstructed. Normal appendix. Minimal scattered colonic diverticulosis without diverticulitis. Again cholecystectomy and partial hysterectomy. New 2.8 cm left ovary cyst. No free fluid/air. Spleen remains borderline enlarged measuring 12.8 cm in greatest axial dimension. Remaining liver, pancreas, spleen, adrenal glands, kidneys, ureters, bladder, and aorta appear unremarkable for noncontrast exam. Osseous structures intact. No ventral or inguinal hernias. Impression: 1. Minimal colonic diverticulosis and splenomegaly. 2. 2.8 cm left ovary cyst. 3. Remaining CT abdomen/pelvis without contrast exam is negative. CT DI 21.69
[2018-09-18] MEDS ORDERED: Sodium Chloride 0.9% 1000 ML 1,000 ML ONE ×2 (13:54→15:25)
[2018-09-18 13:57] LABS: BASOPHIL % 0.5 % (0.0-0.4); Basophil (Absolute #) 0.04 (0-0.4); Eosinophil % 1.4 % (0.00-5.0); Eosinophil (Absolute #) 0.12 (0-0.5); Granulocyte Absolute (ANC) 6.26 (1.4-6.9); Granulocytes % 74.8 % (36.0-66.0); Hematocrit 43.3 % (35-47); Hemoglobin 14.1 gm/dl (12.0-16.0); Lymphocyte (Absolute #) 1.25 (1.0-4.6); Lymphocytes % 14.9 % (24.0-44.0); Mean Cell Volume 83.6 fl (78-100); Mean Corpuscular Hemoglobin 27.2 pg (26-32); Mean Corpuscular Hgb Concent. 32.6 g/dl (32-36); Monocytes % 8.4 % (0.0-12.0); Platelet Count 341 K/mm3 (150-450); Red Blood Count 5.18 M/mm3 (4.1-5.4); Red Cell Distribution Width 14.5 % (11.5-14.0); White Blood Count 8.4 K/mm3 (4.0-10.5)
[2018-09-18 13:59] LABS: ALBUMIN 4.6 g/dL (3.5-5.0); ALKALINE PHOSPHATASE 89 U/L (38-126); AMYLASE 90 U/L (30-110); BLOOD UREA NITROGEN 14 mg/dL (7-17); CHLORIDE 104 mmol/L (98-107); Calcium 9.7 mg/dL (8.4-10.2); Carbon Dioxide 22 mmol/L (22-30); Creatinine 1 1.01 mg/dL (0.52-1.04); Glucose 80 mg/dL (74-106); LIPASE 79 U/L (23-300); Potassium 3.4 mmol/L (3.5-5.1); SGOT/AST 26 U/L (14-36); SGPT/ALT 28 U/L (0-35); SODIUM 138 mmol/L (137-145); Total Protein 7.7 g/dL (6.3-8.2)
[2018-09-18 14:33] LABS: Appearance SLIGHTLY CLOUDY (CLEAR); Bacteria RARE /HPF (NEGATIVE); Bilirubin NEGATIVE (NEGATIVE); Blood SMALL Ery/ul (0-5); Epithelial Cells RARE /HPF (FEW); Glucose NEGATIVE (NEGATIVE); Ketones MODERATE (NEGATIVE); Leukocyte Esterase NEGATIVE (NEGATIVE); Mucus SLIGHT /HPF (NEGATIVE); Nitrite NEGATIVE (NEGATIVE); Protein,Urine Dip NEGATIVE (Negative); RBC 0-2 /HPF (0-2); Specific Gravity 1.014 (1.005-1.025); Urobilinogen NEGATIVE mg/dL (0-1); WBC 0-2 /HPF (0-5)
[2018-09-18 14:34] LABS: INFLUENZA A NEGATIVE (NEGATIVE); INFLUENZA B NEGATIVE (NEGATIVE); RESPIRATORY SYNCTIAL VIRUS NEGATIVE (Negative)
[2018-09-18 15:52] VITALS: BP 148/78; PULSE 87; O2SAT 100
== END 2018-09-18 16:32 | disposition home or self-care (01) ==
LOC: ED 12:35
DX: R19.7 Diarrhea, unspecified (principal); E86.0 Dehydration; E78.00 Pure hypercholesterolemia, unspecified; I10 Essential (primary) hypertension; K58.9 Irritable bowel syndrome, unspecified; F41.9 Anxiety disorder, unspecified; Z79.899 Other long term (current) drug therapy
CPT/HCPCS: 36000; 36415; 74176; 80053; 81001; 82150; 83605; 83690; 85025; 87631; 96360; 96361; 99284

== ENCOUNTER 2023-07-24 05:54 | Day surgery (SDC) | payer OTHER ==
[2023-07-24] MEDS ORDERED: Lactated Ringers 1,000 ML IV SCH (06:30)
[2023-07-24] MEDS ORDERED: Xylocaine-Mpf 2% 5 Ml Vial ONE (07:29)
[2023-07-24] MEDS ORDERED: DIPRIVAN 200 MG/20 ML IV ONE ×2 (07:30→07:48)
[2023-07-24] MEDS ORDERED: Versed 2 MG/2 ML Injection ONE (07:31)
[2023-07-24 08:20] VITALS: RESP 16
[2023-07-24 08:32] VITALS: BP 145/94; PULSE 70; TEMP 97.6; O2SAT 100
--- NOTE | 2023-07-24 12:57 | OP ---
SURGERY DATE/TIME: 07/24/2023 2499 PREOPERATIVE DIAGNOSES: 1) Dysphagia. 2) Screening colon examination. POSTOPERATIVE DIAGNOSES: 1) Moderate gastritis. 2) Normal colon. PROCEDURES: 1) Esophagogastroduodenoscopy with cold forceps biopsy of the stomach antrum. 2) Colonoscopy. SURGEON: Dr. Zeng. ANESTHESIA: Medications were given by the anesthesia department. HISTORY: The patient is a 53-year-old white female presents with significant nausea issues for which she takes Zofran fairly regular. She also reports that food seems to stick in her esophagus as it is going down but she had a scenario where it seems that she just has to slow down so things will go on down. The patient was felt to need to endoscopic evaluation. She was described the risks of the procedure including the risk of perforation, phlebitis, untoward reaction to medication, bleeding and missed lesions. The patient verbalized her understanding and desired to have the procedure performed. DESCRIPTION OF PROCEDURE: The patient was given the medications by the anesthesia department. She had continuous pulse oximetry, ECG monitoring and intermittent blood pressure monitoring during the examination. She was placed in the left lateral decubitus position. A bite block was placed and the flexible Olympus gastroscope was used to intubate the oropharynx. A view of the larynx is obtained and was normal. The scope was easily introduced in the esophagus which appeared to be normal throughout its length. The stomach was entered where there appeared to be a moderate gastritis and patchy areas throughout the stomach. No erosions or ulcerations however were noted. The scope was passed along the greater curvature of the antrum to the pylorus which was encountered and intubated. The duodenum inspected and found to be essentially normal. The scope is withdrawn towards the stomach. A retroflex view was obtained of the lesser curvature, fundus and cardia regions of the stomach and these appeared to be essentially normal other than the gastritis. The scope was then redirected towards the gastric antrum and biopsies were obtained to rule out the presence of Helicobacter pylori-type organisms. The scope was then removed from the patient. Next, a digital rectal examination was performed and revealed normal anal sphincter tone and no masses. The flexible Olympus pediatric colonoscope was used to intubate the rectum. A view of the colon was developed sequentially to the cecum. Upon insertion and withdrawal including retroflex view in the rectum, no mucosal lesions were noted. The scope was removed from the patient who tolerated the procedure well and was sent to OP recovery in good condition. The prep was noted to be good.
== END 2023-07-24 08:49 | disposition home or self-care (01) ==
LOC: SDC 05:54
PROVIDERS: ATTEND Family Medicine
DX: Z12.11 Encounter for screening for malignant neoplasm of colon (principal); R13.10 Dysphagia, unspecified; K29.70 Gastritis, unspecified, without bleeding
CPT/HCPCS: J2250; J2704

== ENCOUNTER 2024-02-06 05:58 | Day surgery (SDC) | payer OTHER ==
[2024-02-06 06:18] VITALS: RESP 18
[2024-02-06] MEDS: Lactated Ringers 1,000 ML IV SCH (06:25)
[2024-02-06 06:43] LABS: Hematocrit 41.8 % (34.1-44.9); Hemoglobin 13.3 g/dL (11.2-15.7); Mean Cell Volume 90.3 fL (79.4-94.8); Mean Corpuscular Hemoglobin 28.7 pg (25.6-32.2); Mean Corpuscular Hgb Concent. 31.8 g/dL (32.2-35.5); Mean Platelet Volume 9.7 fL (9.4-12.3); Platelet Count 348 x10^3/uL (182-369); Red Blood Count 4.63 x10^6/uL (3.93-5.22); Red Cell Distribution Width 13.2 % (11.7-14.4); White Blood Count 8.7 x10^3/uL (3.98-10.04)
[2024-02-06 07:00] LABS: ALBUMIN 4.2 g/dL (3.5-5.0); ANION GAP 13.1 MEQ/L (5-15); BILIRUBIN,TOTAL 0.2 mg/dL (0.2-1.3); Calcium 9.4 mg/dL (8.4-10.2); Creatinine 1 1.13 mg/dL (0.52-1.04); EST GLOMERULAR FILTRATION RATE 58.9 ML/MIN; Potassium 3.7 mmol/L (3.5-5.1); Total Protein 6.9 g/dL (6.3-8.2)
[2024-02-06] MEDS: CEFAZOLIN 2 GM/100 ML NaCl 2 GM/100 ML IVPB IV SCH (07:11)
[2024-02-06] MEDS ORDERED: ROCURONIUM BROMIDE IV ONE (08:15)
[2024-02-06] MEDS ORDERED: Decadron 4 MG INJ ONE (08:15)
[2024-02-06] MEDS ORDERED: Xylocaine-Mpf 2% 5 Ml Vial ONE (08:15)
[2024-02-06] MEDS ORDERED: Zofran 4 MG/2 ML VIAL ONE (08:15)
[2024-02-06] MEDS ORDERED: SUBLIMAZE 100 MCG/2 ML ONE (08:15)
[2024-02-06] MEDS ORDERED: TORAdol 30 mg Injection ONE (08:15)
[2024-02-06] MEDS ORDERED: DIPRIVAN 200 MG/20 ML IV ONE (08:15)
[2024-02-06] MEDS ORDERED: BRIDION 200MG/2ML IV ONE (08:15)
[2024-02-06] MEDS ORDERED: Marcaine 0.5%/Epinephrine 10 ML ONE (08:21)
[2024-02-06] MEDS ORDERED: Naropin 0.5% 30 ML VIAL ONE (08:21)
[2024-02-06] MEDS ORDERED: Lactated Ringers 1,000 ML IV ONE (10:35)
--- NOTE | 2024-02-06 11:19 | XRAY ---
Indication: Surgery. Left calcanectomy and tendon repair. Intraoperative fluoroscopy provided for 1 minute 20 seconds. 20 digital spot images submitted for interpretation ultimate demonstrates partial excision posterior calcaneus with tunnel radiolucencies. Correlate with intraoperative findings/report.
[2024-02-06 12:35] VITALS: TEMP 97.5; O2SAT 95
[2024-02-06 12:45] VITALS: BP 123/67; PULSE 71
--- NOTE | 2024-02-06 15:30 | XRAY ---
One minute and 20 seconds of fluoroscopy was used in surgery for a. Left calcanectomy and tendon repair.
--- NOTE | 2024-02-07 12:02 | OP ---
SURGERY DATE/TIME: 02/06/2024 7913 - [id number] PREOPERATIVE DIAGNOSES: 1) Left insertional Achilles tendinitis. 2) Posterior superior calcaneal exostosis. 3) Bone spur, calcaneus. 4) Difficulty with ambulation. 5) Pain to left heel. 6) Diabetes mellitus. POSTOPERATIVE DIAGNOSES: 1) Left insertional Achilles tendinitis. 2) Posterior superior calcaneal exostosis. 3) Bone spur, calcaneus. 4) Difficulty with ambulation. 5) Pain to left heel. 6) Diabetes mellitus. PROCEDURES: 1) Achilles tendon detachment and debridement. 2) Posterior calcaneal exostectomy. 3) Achilles tendon reattachment. SURGEON: Arnol Wiley DPM [employer] OPERATOR: None. ANESTHESIA: General. We also had done a popliteal and saphenous block prior to the procedure start. POSITIONING: Prone. HEMOSTASIS: A thigh tourniquet set to 300 mmHg for approximately 54 total tourniquet minutes. ESTIMATED BLOOD LOSS: Approximately 5 mL. MATERIALS: 2-0 Vicryl, 4-0 Monocryl, 3-0 nylon, two 3.9 JuggerKnots, two 4.5 Quattro Link anchors, and a 40 x 30 Tapestry. INJECTABLES: See anesthesia report for details. INDICATIONS: Patient is a very pleasant 53-year-old female who is well known to my service for insertional Achilles tendinitis. Patient has been having a significant amount of pain for the last seemingly 4 to 5 months with no improvement of her pain consistently. Patient has tried stretching exercises, night splints, physical therapy, anti-inflammatories, change in activity or activity modification, and the use of weightbearing CAM boot. Patient has failed all these modalities, and an MRI was taken at this time demonstrating some inflammation within the insertion of the Achilles tendon approximately 2 to 3 cm from the midline insertion point. From that standpoint, given the patient's spurring and posterior superior calcaneal exostosis, discussion was held in regard to options for treatment. Patient had exhausted the majority of the conservative options and, at this time, wanted to proceed with surgical intervention. Patient understands all risks, complications, and benefits of surgical intervention at this time including, but not limited to, infection, hematoma, seroma, possibility of delayed wound healing, possibility of non-wound healing, possibility of delayed healing of [id number] interface, possibility of Achilles tendon rupture and a heightened possibility of development of DVT or pulmonary embolism. Patient understands all these risks. She has had plenty of time to ask questions, which were answered to her apparent satisfaction. It is at this time we decided to proceed. DESCRIPTION OF PROCEDURE AND FINDINGS: Patient was into the operating room and placed on the operating room table in the prone position. Following this, a well-padded thigh tourniquet was applied, and the tourniquet was set 300 mmHg based on the patient's blood pressure. The left lower extremity was then prepped and draped in the typical sterile fashion and lowered onto the surgical field. At this time, a midline incision was made utilizing a 10 blade down to the level of the paratenon of the tendon. Once the paratenon was encountered, a full-thickness incision was made, and the flaps were elevated to the level of the paratenon, making sure not to violate or overhandle these soft tissues at the medial and lateral aspects of the surgical incision site. Once the Achilles tendon was identified, a midline incision was made and an inverted T resection was performed in order to open the tendon from the central aspect and reflect this off the posterior aspect of the calcaneus. Once this occurred, a 31 mm sagittal saw was utilized to resect the posterior spur, and then following this shortly thereafter, a 31 mm sagittal saw was then utilized to resect the Danna deformity. Once this was performed, a power rasp was then utilized to smooth down the edges. This was checked under fluoroscopic guidance on a true lateral view. Seemingly, there were no longer any spurs identifiable except within the tendon itself. Following resection of the bone and rasping of the bone, copious amounts of sterile saline were utilized to flush the surgical site. Following this, the tendon was palpated for any calcifications or disease. Once the disease was cut out of the tendon and the calcifications were removed, this was handed off the field along with the bone for pathological assessment. At this time, utilizing the 2.9 JuggerKnots, they were drilled in an orientation in a somewhat converging fashion towards the proximal aspect of the footprint of the calcaneus. Once this was accomplished, they were placed and secured into the bone, lifting the leg off the table to ensure adequate apposition. From that standpoint, the mobile sutures were then removed. The static sutures were then passed through the footprint of the thickest portion of the medial and lateral aspects of the Achilles tendon. One strand of the JuggerKnot was handed off from each field to perform an inverted row-type secure utilizing the 4.5 Quattro Link anchors into the distal aspect of the calcaneus. This was drilled under fluoroscopic guidance in the footprint. Once this was accomplished, the mid substance of the Achilles tendon was then coapted utilizing a continuos interlocking stitch with a buried interrupted initiating suture to provide for no irritation over this site. Once anchored under minimal tension, the Carroll test was checked, which the Achilles tendon was intact. Following this, a 40 x 30 Tapestry was applied to the area just inferior to the paratenon prior to closure. This was sutured utilizing 4-0 Monocryl, and then the paratenon was repaired utilizing, once again, 4-0 Monocryl. Following this, 4-0 Monocryl was utilized in a simple buried interrupted-type fashion to coapt the subcutaneous edges of the wound, and then 3-0 nylon was utilized in a horizontal mattress-type fashion to coapt the skin edges in an everted-type fashion. Following this after cleansing the leg, a dressing was applied consisting of Betadine, Adaptic, 4 x 4, Kerlix, ABD, and a well-padded posterior splint to the left lower extremity. Patient was then reversed from anesthesia and returned to the postanesthesia care unit with vital signs stable and vascular status intact. Patient handled the anesthesia as well as the procedure without significant complication. Postoperative orders as indicated in the patient's discharge chart.
== END 2024-02-06 12:57 | disposition home or self-care (01) ==
LOC: SDC 05:58
PROVIDERS: ATTEND Podiatrist Foot & Ankle Surgery
DX: M76.62 Achilles tendinitis, left leg (principal); M77.32 Calcaneal spur, left foot; R26.2 Difficulty in walking, not elsewhere classified; M79.672 Pain in left foot; E11.9 Type 2 diabetes mellitus without complications; M89.8X7 Other specified disorders of bone, ankle and foot
CPT/HCPCS: 27654; 28118; 36415; 73630; 76000; 80053; 85027; 97116; C1713; C1763; J0690; J1100; J1885; J2405; J2704; J2795; J3010

== ENCOUNTER 2024-06-22 19:03 | Emergency (ER) | payer OTHER ==
--- NOTE | 2024-06-22 19:14 | ERPHSYRPT ---
- History of Present Illness Time Seen by Provider: 06/22/24 19:14 Historian: patient, family Exam Limitations: no limitations Physician History: This is an overweight 54-year-old white female patient of nurse practitioner Mark who presents to the emergency department by private vehicle companied by her with a complaint of sudden onset of vomiting and diarrhea this morning. Patient was fine yesterday and her symptoms came on suddenly. She has no known exposure to individuals similar symptoms or who have been diagnosed with viral illness. Patient denies chest pain. Patient denies shortness of breath. Patient denies abdominal pain. Patient has a history gastroesophageal reflux disease, COPD and hypertension. Timing/Duration: today Activities at Onset: none Abdominal Pain Onset Location: generalized abdomen Severity of Pain-Max: mild Severity of Pain-Current: none Associated Symptoms: diarrhea, loss of appetite, nausea, vomiting, weakness, No chest pain, No fever/chills, No shortness of breath Previous symptoms: no prior history, no recent treatment Allergies/Adverse Reactions: No Known Drug Allergies Allergy (Verified 06/22/24 19:24) Home Medications: Montelukast Sodium [Singulair] 1 tab PO DAILY 12/20/14 [History] Atorvastatin Calcium 1 tab PO DAILY 08/06/20 [History] Cyanocobalamin (Vitamin B-12) [Cyanocobalamin Injection] 1,000 mcg IM UD 08/06/20 [History] Erenumab-Aooe [Aimovig Autoinjector] 140 mg IM UD 08/06/20 [History] Fexofenadine HCl [Shruti] 180 mg PO DAILY 08/06/20 [History] Fluticasone Propionate [Flonase Allergy Relief] 9.9 ml NS DAILY 08/06/20 [History] Levocetirizine Dihydrochloride [Xyzal] 5 mg PO DAILY 08/06/20 [History] Tizanidine HCl [Zanaflex] 3 cap PO HS 08/06/20 [History] Topiramate 1 tab PO BID 08/06/20 [History] Vitamin E 2 cap PO DAILY 08/06/20 [History] Bupropion HCl 150 mg Sr [Wellbutrin SR 150 MG] 300 mg PO DAILY 10/31/22 [History] Losartan Potassium 50 mg [Cozaar 50 MG] 50 mg PO DAILY 10/31/22 [History] Albuterol Sulfate [Albuterol Sulfate Hfa] 1 puff IH UD 06/29/23 [History] Onabotulinumtoxina [Botox] 1 unit SQ UD 06/29/23 [History] Ondansetron ODT 4 MG [Zofran Odt 4 mg] 4 mg PO UD 06/29/23 [History] Pilocarpine HCl 7.5 mg PO BID 06/29/23 [History] Aspirin EC 325 mg [Ecotrin 325 MG] 325 mg PO HS 02/06/24 [History] Omeprazole 20 mg PO DAILY 02/06/24 [History] Hydrocodone/Acetaminophen [Hydrocodone-Acetamin 7.5-325] 1 each PO Q6H 02/08/24 [History] Hx Tetanus, Diphtheria Vaccination/Date Given: No Travel Risk - Emerging Infectious Disease Are you exhibiting symptoms associated with any current EIDs: Yes Symptoms: Diarrhea, Vomitting - Review of Systems Constitutional: Weakness Eyes: No Symptoms Ears, Nose, & Throat: No Symptoms Respiratory: No Symptoms Cardiac: No Symptoms Abdominal/Gastrointestinal: Nausea, Vomiting, Diarrhea, Appetite Changes, No Abdominal Pain, No Constipation Genitourinary Symptoms: No Symptoms Musculoskeletal: No Symptoms Skin: No Symptoms Neurological: No Symptoms Psychological: No Symptoms Endocrine: No Symptoms Hematologic/Lymphatic: No Symptoms Immunological/Allergic: No Symptoms All Other Systems: Reviewed and Negative - Past Medical History Pertinent Past Medical History: Yes Neurological History: Migraines ENT History: No Pertinent History Cardiac History: High Cholesterol, Hypertension Respiratory History: Sleep Apnea Endocrine Medical History: Diabetes Type II, Liver Disease Musculoskeletal History: Other GI Medical History: No Pertinent History History: No Pertinent History Psycho-Social History: Depression Female Reproductive Disorders: No Pertinent History Other Medical History: SX HX: SINUS SURGERY, HYSTERECTOMY, CHOLECYSTECTOMY. OTHER PMHX: WARD, DEPRESSION - Past Surgical History Past Surgical History: Yes Neuro Surgical History: No Pertinent History Cardiac: Cardiac Catheterization Respiratory: No Pertinent History Gastrointestinal: Cholecystectomy Genitourinary: No Pertinent History Musculoskeletal: No Pertinent History Female Surgical History: Hysterectomy, Tubal Ligation Other Surgical History: tonsilectomy, sinus surgery, partial hysterectomy, cholecystectomy - Social History Smoking Status: Never smoker Exposure to second hand smoke: No Drug Use: none Patient Lives Alone: No - Nursing Vital Signs Nursing Vital Signs: Initial Vital Signs Temperature 97.7 F 06/22/24 19:08 Pulse Rate 129 H 06/22/24 19:08 Respiratory Rate 18 06/22/24 19:08 Blood Pressure 172/103 06/22/24 19:08 O2 Sat by Pulse Oximetry 97 06/22/24 19:08 Pain Scale Pain Intensity 8 - Physical Exam General Appearance: no apparent distress, alert, anxiety, obese Eye Exam: PERRL/EOMI, eyes nml inspection Ears, Nose, Throat Exam: normal ENT inspection, moist mucous membranes Neck Exam: normal inspection, non-tender, supple, full range of motion Respiratory Exam: normal breath sounds, lungs clear, airway intact, No chest tenderness, No respiratory distress Cardiovascular Exam: tachycardia Gastrointestinal/Abdomen Exam: soft, normal bowel sounds, No tenderness Pelvic Exam: not done Rectal Exam: not done Back Exam: normal inspection, normal range of motion, No CVA tenderness, No vertebral tenderness Extremity Exam: normal inspection, normal range of motion, pelvis stable Neurologic Exam: alert, oriented x 3, cooperative, manufacturing applications engineer II-XII nml as tested, nml cerebellar function, nml station & gait, sensation nml Skin Exam: No normal color Lymphatic Exam: No adenopathy SpO2 Interpretation: normal O2 Delivery: Room Air - Course Nursing assessment & vital signs reviewed: Yes Ordered Tests: Active Orders 24 hr Category Date Time Status EKG-ER Only STAT Care 06/22/24 19:14 Completed IV Insertion STAT Care 06/22/24 19:14 Active Pulse Oximetry (ED) STAT Care 06/22/24 19:14 Active BLOOD CULTURE Stat Lab 06/22/24 19:30 Received BMP Stat Lab 06/23/24 00:48 Ordered CBC W DIFF Stat Lab 06/22/24 19:20 Completed CMP Stat Lab 06/22/24 19:20 Completed MONO SCREEN Stat Lab 06/22/24 19:20 Completed UA W/RFX UR CULTURE Stat Lab 06/22/24 21:03 Completed Medication Summary Discontinued Medications Generic Name Dose Route Start Last Admin Trade Name Freq PRN Reason Stop Dose Admin Hydromorphone HCl 1 mg 06/22/24 23:25 06/22/24 23:55 Hydromorphone 1 Mg/1ml Inj IV 06/22/24 23:26 1 mg STAT ONE Administration Hydromorphone HCl Confirm 06/22/24 23:50 Hydromorphone 1 Mg/1ml Inj Administered 06/22/24 23:51 Dose 1 mg .ROUTE .STK-MED ONE Sodium Chloride 1,000 mls @ 999 mls/hr 06/22/24 21:04 06/22/24 21:10 Sodium Chloride 0.9% 1000 Ml IV 06/22/24 22:04 999 mls/hr .Q1H1M STA Administration Sodium Chloride Confirm 06/22/24 21:09 Sodium Chloride 0.9% 1000 Ml Administered 06/22/24 21:10 Dose 1,000 mls @ ud .ROUTE .STK-MED ONE Lactated Ringer's 1,000 mls @ 999 mls/hr 06/22/24 22:40 06/22/24 23:07 Lactated Ringers IV 06/22/24 23:40 999 mls/hr .Q1H1M ONE Administration Lactated Ringer's Confirm 06/22/24 23:05 Lactated Ringers Administered 06/22/24 23:06 Dose 1,000 mls @ ud IV .STK-MED ONE Ondansetron HCl 4 mg 06/22/24 19:14 06/22/24 19:34 Ondansetron Hcl 4 Mg/2 Ml Vial IV 06/22/24 19:15 4 mg STAT STA Administration Ondansetron HCl Confirm 06/22/24 19:31 Ondansetron Hcl 4 Mg/2 Ml Vial Administered 06/22/24 19:32 Dose 4 mg .ROUTE .STK-MED ONE Prochlorperazine Edisylate 5 mg 06/22/24 23:25 06/22/24 23:53 Prochlorperazine Edisylate 10 Mg/2 Ml Vial IV 06/22/24 23:26 5 mg STAT ONE Administration Prochlorperazine Edisylate Confirm 06/22/24 23:51 Prochlorperazine Edisylate 10 Mg/2 Ml Vial Administered 06/22/24 23:52 Dose 10 mg .ROUTE .STK-MED ONE Lab/Rad Data: Laboratory Result Diagrams 06/22/24 19:20 06/22/24 19:20 Laboratory Results 06/22/24 06/22/24 06/22/24 Range/Units 21:03 19:35 19:20 WBC (3.98-10.04) x10^3/uL RBC (3.93-5.22) x10^6/uL Hgb (11.2-15.7) g/dL Hct (34.1-44.9) % MCV (79.4-94.8) fL MCH (25.6-32.2) pg MCHC (32.2-35.5) g/dL RDW (11.7-14.4) % Plt Count (182-369) x10^3/uL MPV (9.4-12.3) fL Gran % (34.0-71.1) % Immature Gran % (Auto) (0.001-0.429) % Nucleat RBC Rel Count (0.00-0.2) % Eos # (Auto) (0.04-0.36) x10^3/uL Immature Gran # (Auto) (0.001-0.031) x10^3u/L Absolute Lymphs (auto) (1.18-3.74) x10^3/uL Absolute Monos (auto) (0.24-0.86) x10^3/uL Absolute Nucleated RBC (0.00-0.012) x10^3u/L Lymphocytes % (19.3-51.7) % Monocytes % (4.7-12.5) % Eosinophils % (0.7-5.8) % Basophils % (0.1-1.2) % Absolute Granulocytes (1.56-6.13) x10^3/uL Basophils # (0.01-0.08) x10^3/uL Sodium (135-145) mmol/L Potassium (3.5-5.1) mmol/L Chloride (98-107) mmol/L Carbon Dioxide (22-30) mmol/L Anion Gap (5-15) MEQ/L BUN (7-17) mg/dL Creatinine (0.52-1.04) mg/dL Estimated GFR ML/MIN Glucose (74-106) mg/dL Calcium (8.4-10.2) mg/dL Total Bilirubin (0.2-1.3) mg/dL AST (14-36) U/L ALT (0-35) U/L Alkaline Phosphatase (38-126) U/L Serum Total Protein (6.3-8.2) g/dL Albumin (3.5-5.0) g/dL Urine Color Yellow (Yellow) Urine Appearance Turbid A (Clear) Urine pH 5.5 (4.6-8.0) Ur Specific [place] >=1.030 A (1.005-1.030) Urine Protein 30 (Negative) Urine Glucose (UA) Negative (Negative) mg/dL Urine Ketones Trace A (Negative) Urine Blood Negative (Negative) Urine Nitrite Negative (Negative) Urine Bilirubin Negative (Negative) Urine Urobilinogen 0.2 (0.2) mg/dL Ur Leukocyte Esterase Negative (Negative) U Hyaline Cast (Auto) NONE SEEN (0-2) /LPF Urine Microscopic RBC 6-10 A (0-5) /HPF Urine Microscopic WBC 0-2 (0-5) /HPF Ur Epithelial Cells None Seen (None Seen) /HPF Amorphous Crystals Many A (None Seen) /HPF Urine Bacteria None Seen (None Seen) /HPF Urine Culture Reflexed NO (NO) Monoscreen NEGATIVE (NEGATIVE) Influenza Type A Ag NEGATIVE (NEGATIVE) Influenza Type B Ag NEGATIVE (NEGATIVE) RSV (PCR) NEGATIVE (NEGATIVE) SARS-CoV-2 (PCR) NEGATIVE (NEGATIVE) Slides for Path Review 06/22/24 06/22/24 Range/Units 19:20 19:20 WBC 15.4 H (3.98-10.04) x10^3/uL RBC 5.43 H (3.93-5.22) x10^6/uL Hgb 15.6 (11.2-15.7) g/dL Hct 47.9 H (34.1-44.9) % MCV 88.2 (79.4-94.8) fL MCH 28.7 (25.6-32.2) pg MCHC 32.6 (32.2-35.5) g/dL RDW 13.5 (11.7-14.4) % Plt Count 471 H (182-369) x10^3/uL MPV 10.0 (9.4-12.3) fL Gran % 91.6 H (34.0-71.1) % Immature Gran % (Auto) 0.9 H (0.001-0.429) % Nucleat RBC Rel Count 0.0 (0.00-0.2) % Eos # (Auto) 0.04 (0.04-0.36) x10^3/uL Immature Gran # (Auto) 0.14 H (0.001-0.031) x10^3u/L Absolute Lymphs (auto) 0.45 L (1.18-3.74) x10^3/uL Absolute Monos (auto) 0.63 (0.24-0.86) x10^3/uL Absolute Nucleated RBC 0.00 (0.00-0.012) x10^3u/L Lymphocytes % 2.9 L (19.3-51.7) % Monocytes % 4.1 L (4.7-12.5) % Eosinophils % 0.3 L (0.7-5.8) % Basophils % 0.2 (0.1-1.2) % Absolute Granulocytes 14.07 H (1.56-6.13) x10^3/uL Basophils # 0.03 (0.01-0.08) x10^3/uL Sodium 142 (135-145) mmol/L Potassium 4.1 (3.5-5.1) mmol/L Chloride 112 H (98-107) mmol/L Carbon Dioxide 16 L* (22-30) mmol/L Anion Gap 19.6 H (5-15) MEQ/L BUN 15 (7-17) mg/dL Creatinine 0.97 (0.52-1.04) mg/dL Estimated GFR 70.3 ML/MIN Glucose 147 H (74-106) mg/dL Calcium 9.8 (8.4-10.2) mg/dL Total Bilirubin 0.50 (0.2-1.3) mg/dL AST 31 (14-36) U/L ALT 38 H (0-35) U/L Alkaline Phosphatase 184 H (38-126) U/L Serum Total Protein 7.7 (6.3-8.2) g/dL Albumin 4.9 (3.5-5.0) g/dL Urine Color (Yellow) Urine Appearance (Clear) Urine pH (4.6-8.0) Ur Specific [place] (1.005-1.030) Urine Protein (Negative) Urine Glucose (UA) (Negative) mg/dL Urine Ketones (Negative) Urine Blood (Negative) Urine Nitrite (Negative) Urine Bilirubin (Negative) Urine Urobilinogen (0.2) mg/dL Ur Leukocyte Esterase (Negative) U Hyaline Cast (Auto) (0-2) /LPF Urine Microscopic RBC (0-5) /HPF Urine Microscopic WBC (0-5) /HPF Ur Epithelial Cells (None Seen) /HPF Amorphous Crystals (None Seen) /HPF Urine Bacteria (None Seen) /HPF Urine Culture Reflexed (NO) Monoscreen (NEGATIVE) Influenza Type A Ag (NEGATIVE) Influenza Type B Ag (NEGATIVE) RSV (PCR) (NEGATIVE) SARS-CoV-2 (PCR) (NEGATIVE) Slides for Path Review YES - Progress Progress: improved Progress Note: 06/22/24 19:58 My medical decision making and the assignment of moderate complexity to this patient's medical issue today is based on review of the patient's past medical history, review of the patient's medication list, reviewed patient drug allergy list, history present illness and physical findings on examination. The workup in this patient includes intravenous line placement, infusion of Zofran, infusion of crystalloid, CBC, CMP amylase, lipase, urinalysis, monotest and viral swabs. Differential diagnosis includes but is not limited to urinary tract infection, dehydration, pancreatitis, viral illness 06/23/24 00:49 I interpreted the patient's laboratory data results. Based on the laboratory data results, the patient does have a leukocytosis. Patient viral studies are negative. Likely she does have viral syndrome. She is reexamined. Her headache is gone as is her nausea and vomiting. She is feeling much better. She desires to be discharged to home. Counseled pt/family regarding: lab results, diagnosis, need for follow-up Medical Desision Making - Independent Historian Additional History obtained from: Spouse - Diagnostic Testing Diagnostic test were ordered, analyzed, and reviewed by me: Yes - Risk of complications Low Risk: Low risk of morbidity from additional dx testing or treatment - Departure Departure Disposition: Home Clinical Impression: Vomiting, Viral syndrome Condition: Stable Critical Care Time: No Referrals: KLELE SANDOVAL NP [Primary Care Provider] - Follow up/PCP as directed Additional Instructions: Drink plenty of clear liquids before advancing your diet. Avoid fatty greasy spicy foods. Take all your medications as prescribed. Call your primary prescribing provider tomorrow morning, 06/24/2024 to make arranges for follow-up appointment for further evaluation management.
[2024-06-22 19:24] VITALS: TEMP 97.7
[2024-06-22] MEDS ORDERED: Zofran 4 MG/2 ML VIAL ONE (19:31)
[2024-06-22] MEDS: Zofran 4 MG/2 ML VIAL IV STA (19:34)
[2024-06-22 19:39] LABS: Absolute Neutrophil Ct (ANC) 14.07 x10^3/uL (1.56-6.13); BASOPHIL % 0.2 % (0.1-1.2); Basophil (Absolute #) 0.03 x10^3/uL (0.01-0.08); Eosinophil % 0.3 % (0.7-5.8); Eosinophil (Absolute #) 0.04 x10^3/uL (0.04-0.36); Hematocrit 47.9 % (34.1-44.9); Hemoglobin 15.6 g/dL (11.2-15.7); IMMATURE GRAN # 0.14 x10^3u/L (0.001-0.031); IMMATURE GRAN % 0.9 % (0.001-0.429); Lymphocyte (Absolute #) 0.45 x10^3/uL (1.18-3.74); Lymphocytes % 2.9 % (19.3-51.7); Mean Cell Volume 88.2 fL (79.4-94.8); Mean Corpuscular Hemoglobin 28.7 pg (25.6-32.2); Mean Corpuscular Hgb Concent. 32.6 g/dL (32.2-35.5); Monocyte (Absolute #) 0.63 x10^3/uL (0.24-0.86); Monocytes % 4.1 % (4.7-12.5); Neutrophil % 91.6 % (34.0-71.1); Platelet Count 471 x10^3/uL (182-369); Red Blood Count 5.43 x10^6/uL (3.93-5.22); Red Cell Distribution Width 13.5 % (11.7-14.4); White Blood Count 15.4 x10^3/uL (3.98-10.04)
[2024-06-22 19:51] LABS: ALBUMIN 4.9 g/dL (3.5-5.0); ANION GAP 19.6 MEQ/L (5-15); BILIRUBIN,TOTAL 0.5 mg/dL (0.2-1.3); Calcium 9.8 mg/dL (8.4-10.2); Creatinine 1 0.97 mg/dL (0.52-1.04); EST GLOMERULAR FILTRATION RATE 70.3 ML/MIN; Potassium 4.1 mmol/L (3.5-5.1); Total Protein 7.7 g/dL (6.3-8.2)
[2024-06-22 20:16] LABS: INFLUENZA A NEGATIVE (NEGATIVE); INFLUENZA B NEGATIVE (NEGATIVE); RESPIRATORY SYNCTIAL VIRUS NEGATIVE (NEGATIVE); SARS-CoV-2 Xpert Express NEGATIVE (NEGATIVE)
[2024-06-22 20:58] LABS: Slide Review 1 YES
[2024-06-22] MEDS ORDERED: Sodium Chloride 0.9% 1000 ML 1,000 ML ONE (21:09)
[2024-06-22] MEDS: Sodium Chloride 0.9% 1000 ML 1,000 ML IV STA (21:10)
[2024-06-22 21:32] LABS: Amourphous Crystal Many /HPF (None Seen); Appearance Turbid (Clear); Bacteria None Seen /HPF (None Seen); Bilirubin Negative (Negative); Blood Negative (Negative); Epithelial Cells None Seen /HPF (None Seen); Glucose, Urine Negative (Negative); Hyaline Casts NONE SEEN /LPF (0-2); Ketones Trace (Negative); Leukocyte Esterase Negative (Negative); Nitrite Negative (Negative); Ph 5.5 (4.6-8.0); Protein,Urine Dip 30 (Negative); Specific Gravity >=1.030 (1.005-1.030); Urobilinogen 0.2 mg/dL (0.2); WBC 0-2 /HPF (0-5)
[2024-06-22] MEDS ORDERED: Lactated Ringers 1,000 ML IV ONE (23:05)
[2024-06-22] MEDS: Lactated Ringers 1,000 ML IV ONE (23:07)
[2024-06-22] MEDS ORDERED: Hydromorphone 1 mg/ml Injection ONE (23:50)
[2024-06-22] MEDS ORDERED: Compazine 10 MG/2 ML ONE (23:51)
[2024-06-22] MEDS: Compazine 10 MG/2 ML IV ONE (23:53)
[2024-06-22] MEDS: Hydromorphone 1 mg/ml Injection IV ONE (23:55)
[2024-06-23 01:26] LABS: Calcium 8.2 mg/dL (8.4-10.2); Creatinine 1 0.9 mg/dL (0.52-1.04); EST GLOMERULAR FILTRATION RATE 76.9 ML/MIN; Potassium 3.3 mmol/L (3.5-5.1)
[2024-06-23 01:52] VITALS: BP 112/68; PULSE 87; RESP 18; O2SAT 95
== END 2024-06-23 01:54 | disposition home or self-care (01) ==
LOC: ED 19:03
DX: R11.2 Nausea with vomiting, unspecified (principal); B34.9 Viral infection, unspecified; R10.84 Generalized abdominal pain; R19.7 Diarrhea, unspecified; R53.1 Weakness
CPT/HCPCS: 0241U; 36415; 80048; 80053; 81001; 85025; 86308; 87040; 94760; 96360; 96361; 96374; 96375; 99283; 99284; J1171; J2405